=== PATIENT | male | born 1960 | race Caucasian/White ===

== ENCOUNTER 2019-10-10 07:01 | Day surgery (SDC) | payer BC ==
[2019-10-10 07:32] VITALS: BMI 33.1
[2019-10-10 08:32] VITALS: TEMP 97.9
[2019-10-10 09:16] VITALS: BP 124/66; PULSE 64
--- NOTE | 2019-10-11 17:02 | PATH ---
Surgical Pathology Report Patient Name: RILEY GRAFF [facility]. Rec. #: [id number] /Age/Gender: 1960 (Age: 59) / M Account: [id number] Location: [facility]-ENDOSCOPY Taken: 10/10/2019 Received: 10/10/2019 Reported: 10/11/2019 Physicians: AISHA AZEVEDO Specimen(s) Received A: APPENDICEAL ORIFICE POLYP B: ASCENDING COLON POLYP Clinical History History of colon polyp Postoperative diagnosis: Polyps Final Diagnosis A. APPENDICEAL ORIFICE POLYP, BIOPSY: COLONIC MUCOSA WITH BENIGN REACTIVE LYMPHOID AGGREGATE. B. ASCENDING COLON POLYP, POLYPECTOMY: TUBULAR ADENOMA. Electronically Signed [place] M.D. Gross Description A. Received in formalin, labeled "biopsy appendiceal orifice polyp" is a miller, irregular portion of soft tissue measuring 0.4 cm. in greatest dimension. The specimen is submitted in toto in one cassette. B. Received in formalin, labeled "biopsy ascending colon polyp" are 3 miller, irregular portions of soft tissue ranging from 0.3-0.5 cm. in greatest dimension. The specimens are submitted in toto in one cassette. DL/10/10/2019 saudi/10/10/2019
== END 2019-10-10 09:19 | disposition home or self-care (01) ==
LOC: JASU-ENDO 07:01
PROVIDERS: ATTEND Internal Medicine Gastroenterology
PROC: 0DBK8ZX Excision of Ascending Colon, Via Natural or Artificial Opening Endoscopic, Diagnostic (ICD-10-PCS; principal; 2019-10-10 08:00)
DX: Z12.11 Encounter for screening for malignant neoplasm of colon (principal); Z86.010 Personal history of colon polyps
CPT/HCPCS: 88305-TC